=== PATIENT | male | born 1965 | race Two or more races ===

== ENCOUNTER 2017-01-30 19:08 | Emergency (ER) | payer BC ==
[2017-01-30] MEDS ORDERED: CLINDAMYCIN HCL 150 MG CAPSULE PO ONE (19:24)
[2017-01-30] MEDS ORDERED: CLINDAMYCIN HCL 150 MG CAPSULE ONE (19:39)
--- NOTE | 2017-01-30 19:40 | ERNOTE ---
ENT HPI Date of Service: 01/30/17 Presenting Symptoms: dental pain Time Seen by Provider: 01/30/17 19:23 Source: patient Exam Limitations: no limitations - Immun/Allergies/Home Medications Immunizations: IMMUNIZATION HX Immunizations Up to Date Yes History of Influenza Vaccine Yes Hx Pneumococcal Vaccination No Allergies/Adverse Reactions: Allergies Allergy/AdvReac Type Severity Reaction Status Date / Time No Known Allergies Allergy Unverified 01/30/17 19:12 Home Medications: HOME MEDICATIONS Clindamycin HCl [Cleocin HCl] 300 mg PO TID #21 capsule 01/30/17 [Last Taken Unknown] Glimepiride [Amaryl] 2 mg PO DAILY 01/30/17 [Last Taken Unknown] Insulin Glargine,Hum.rec.anlog [Lantus Solostar] 30 unit SQ HS 01/30/17 [Last Taken Unknown] Insulin Lispro [Humalog] unit SQ 01/30/17 [Last Taken Unknown] Lisinopril [Zestril] 5 mg PO DAILY 01/30/17 [Last Taken Unknown] metFORMIN HCL [Glucophage] 1,000 mg PO BIDWM 01/30/17 [Last Taken Unknown] - History of Present Illness Narrative: 51-year-old male presents to the emergency room for right facial swelling. He stated that yesterday he noticed a tender spot along his right cheek and today it's gotten bigger and more swollen and painful. Patient has had previous dental work to the right side of his teeth but denies any tooth pain at this time. Date (Duration): 01/30/17 Severity: Present: mild ENT Location: Present: facial Prearrival Treatment: Present: no prearrival treatment Modifying Factors - Improves: Reports: nothing Associated Symptoms - ENT: Reports: facial pain/swelling Review of Systems - Review of Systems Constitutional: Present: no symptoms reported EYE: Present: no symptoms reported ENT: Present: See HPI Respiratory: Present: no symptoms reported Cardiology: Present: no symptoms reported Gastrointestinal/Abdominal: Present: no symptoms reported Genitourinary: Present: no symptoms reported Musculoskeletal: Present: no symptoms reported Skin: Present: no symptoms reported Neurological: Present: no symptoms reported Endocrine: Present: no symptoms reported Hematologic/Lymphatic: Present: no symptoms reported Psych: Present: no symptoms reported All Other Systems: All systems neg except as marked - Patient's Past Medical History Patient History - Medical: Diabetes Type 2 Insulin Dependent Patient History - Cardiac/Respiratory: Hypertension Patient History - Cancer: No Hx of Cancer Patient History - Surgical Procedures: Back Surgery, T & A, Other Patient History - Other: None - Social History Living Situations: home Psych History: No pertinent hx Smoking Status: Former smoker Have you smoked in the past 12 months: No Do you dip or chew tobacco: No Alcohol Use: occasionally Drug Use: none - Immunizations Immunizations Up to Date: Yes Hx Pneumococcal Vaccination: No History of Influenza Vaccine: Yes Physical Exam - Physical Exam Narrative: tender area to right upper jaw line in cheek area. small soft palpable mass felt. gum line is not red or inflamed. General Appearance: Present: wd/wn, alert, no apparent distress Head Exam: Present: no evidence of injury, swelling, tenderness Eye Exam: Normal inspection: bilateral, PERRL: bilateral, EOMI: bilateral Ears, Nose, Throat: Present: sinus pain/drainage. Absent: pharyngeal erythema, pharyngeal swelling, tonsillar exudate, dry mucous membranes Neck: Present: normal inspection, nontender, full range of motion Respiratory: Present: no respiratory distress, normal breath sounds, no accessory muscle use, chest nontender, lungs clear Cardiovascular/Chest: Present: regular rate, rhythm, no murmur, normal peripheral pulses Gastrointestinal/Abdominal: Present: normal bowel sounds, nontender, nondistended, soft, no organomegaly Back Exam: Present: normal inspection, normal range of motion, no CVA tenderness , no vertebral tenderness Extremity Exam: Present: normal inspection, non-tender, normal range of motion, no edema Neurological Exam: Present: alert, oriented, normal mood/affect, no motor/ sensory deficits. Absent: facial droop Skin Exam: Present: normal color, warm/dry Lymphatic Exam: Present: no adenopathy ED Progress - Vital Signs Patient's Vital Signs:: I have reviewed the patient's vital signs. Vital Signs: Vital Signs 01/30/17 19:14 Pulse Rate 85 Respiratory 18 Rate Blood Pressure 150/83 O2 Sat by Pulse 95 Oximetry - Progress/Reassessment Chief Complaint: Dental Problem Progress:: Improved Plan - Plan Plan: Patient has a dentist and he states he will follow-up with his dentist. Patient instructed on if he would need to return for fever swelling increased pain Departure Clinical Impression: Dental abscess - Departure Disposition: Home Follow Up Needed Condition: Stable Instructions: Dental Abscess, [id number] Additional Instructions: Continue any previous home medications. Take all antibiotics as prescribed. He may take [id number] pain medications as needed. Follow-up with your dentist or primary care in the next 2-3 days. Return to the emergency room if he develops signs and symptoms of increased infection such as fever pain or swelling is not able to be controlled with [id number] pain medications. Prescriptions: Clindamycin HCl [Cleocin HCl] 300 mg PO TID #21 capsule
[2017-01-30 20:10] VITALS: BP 123/85
== END 2017-01-30 20:10 | disposition home or self-care (01) ==
LOC: ER 19:08
DX: K04.7 Periapical abscess without sinus (principal); E11.9 Type 2 diabetes mellitus without complications; Z79.4 Long term (current) use of insulin; I10 Essential (primary) hypertension